=== PATIENT | male | born 1960 | race Caucasian/White ===

== ENCOUNTER 2017-01-30 00:41 | Inpatient (IN) | payer OTHER ==
[~2017-01-30] VITALS: Ht 177.8 cm; Wt 136.4 kg
[2017-01-30] VITALS (15 sets, daily range): BP systolic 132–173; BP diastolic 53–99
[~2017-01-30 00:41] MED LIST: AFRIN,GENASAL D15 ML BOTH NARES; AMLODIPINE BESYL5 MG PO; AMLODIPINE-BEN1 EAC3 PO; ANTACID420 MG PO; DECONGEST BOTH NARES; DYNAPEN500 MG PO; EXTRA STRENGTH500 M1 PO; FERROUS SULFAT325 MG PO; FIBER SELECT G1 EACH PO; FLONASE16 G1 BOTH NARES; KEFLEX500 MG PO; LEVOFLOXACIN500 MG PO; LISINOPRIL10 MG PO; LISINOPRIL20 MG PO; LISINOPRIL5 MG PO; LOTREL 5/201 CAPSULE PO; MAGNESIUM250 MG PO; NYQUIL D COLD295 ML PO; OMEPRAZOLE40 M1 PO; POTASSIUM CHLO10 MEQ PO; POTASSIUM GLUCO2 MEQ PO; POTASSIUM-9999 MG PO; PRILOSEC20 MG PO; PROTONIX40 MG PO; Percocet 5/325,Endoc PO; STOOL SOFTENER100 MG PO; TUMS500 MG PO; TYLENOL REGULA325 MG PO; Zestril,Prinivil PO
[2017-01-30 01:24] LABS: CHLORIDE 101 mEq/L (99-109); POTASSIUM 3.7 mEq/L (3.7-5.4); SODIUM 134 mEq/L (136-147)
[2017-01-30 01:26] LABS: GLUCOSE 115 mg/dL (70-99)
[2017-01-30 01:27] LABS: ANION GAP 14 MEQ/L (2-14)
[2017-01-30 01:30] LABS: GFR ESTIMATE (CALCULATED) > 59 mL/min/
[2017-01-30 01:31] LABS: UREA NITROGEN (BUN) 14 mg/dL (9-23)
[2017-01-30 01:44] LABS: HEMATOCRIT 21.2 % (38.0-50.0); MCH 18.8 PG (29.0-34.0); MCHC 27.8 G/DL (30.0-36.0); MCV 67.5 FL (86-99); MEAN PLAT.VOLUME 10.4 uM^3 (9.0-12.4); PLATELET COUNT 133 K/uL (156-360); RBC DIS.WIDTH-CV 18.5 % (11.8-14.6); RBC DIS.WIDTH-SD 44.6 % (39-53); RED BLOOD COUNT 3.14 M/uL (4.00-5.50); WHITE BLOOD COUNT 4.4 K/uL (4.1-10.2)
[2017-01-30 02:47] LABS: TOTAL BILIRUBIN 0.6 mg/dL (0.0-1.0)
[2017-01-30 02:48] LABS: ALKALINE PHOSPHATASE 39 IU/L (3-129)
[2017-01-30 02:51] LABS: DIRECT BILIRUBIN 0.2 mg/dL (0.0-0.3); INTER. NORMALIZED RATIO 1.2; PROTHROMBIN TIME 11.9 (9.2-11.2); PTT 23.6 (25-32)
[2017-01-30 02:52] LABS: LIPASE 44 U/L (1.0-51.0)
[2017-01-30] MEDS ORDERED: OMEPRAZOLE40 M1 PO (10:24)
[2017-01-30] MEDS ORDERED: ZESTRIL20 MG PO (10:24)
[2017-01-30] MEDS ORDERED: AFRIN,GENASAL D15 ML BOTH NARES (10:25)
[2017-01-30] MEDS ORDERED: POTASSIUM GLUCO2 MEQ PO (10:26)
[2017-01-30 20:57] LABS: HEMATOCRIT 26.4 % (38.0-50.0); MCV 73.1 FL (86-99)
[2017-01-31] VITALS: BP 151/81
[2017-01-31 03:47] VITALS: BP 158/74
[2017-01-31 08:11] LABS: HEMATOCRIT 26.5 % (38.0-50.0); MCV 74.4 FL (86-99)
[2017-01-31 08:13] VITALS: BP 162/80
== END 2017-01-31 12:45 | disposition home or self-care (01) | DRG 378 ==
LOC: EME 00:41 → EDOF 03:55 → 4SOUTH 03:55 → EDOF 06:50 → 4SOUTH 07:23
PROVIDERS: Physician Assistant Medical
PROC: 30233N1 Transfusion of Nonautologous Red Blood Cells into Peripheral Vein, Percutaneous Approach (ICD-10-PCS; principal; 2017-01-30)
DX: K92.2 Gastrointestinal hemorrhage, unspecified (principal); D62 Acute posthemorrhagic anemia; E66.01 Morbid (severe) obesity due to excess calories; I10 Essential (primary) hypertension; K21.9 Gastro-esophageal reflux disease without esophagitis; K57.90 Diverticulosis of intestine, part unspecified, without perforation or abscess without bleeding; Z68.41 Body mass index [BMI] 40.0-44.9, adult; F10.10 Alcohol abuse, uncomplicated; K26.9 Duodenal ulcer, unspecified as acute or chronic, without hemorrhage or perforation; M10.9 Gout, unspecified
CPT/HCPCS: 80048; 80076; 83690; 83735; 85014; 85018; 85027; 85610; 85730; 86900; 86901; 86920; 99281; 99285; C9113; J1940; J3411; J7030; P9016

== ENCOUNTER 2017-04-23 01:00 | Inpatient (IN) | payer OTHER ==
[~2017-04-23] VITALS: Ht 180.3 cm; Wt 122.0 kg
[2017-04-23] VITALS (19 sets, daily range): BP systolic 0–181; BP diastolic 0–136
[~2017-04-23 01:00] MED LIST changes: +ZESTRIL20 MG PO
[2017-04-23 01:40] LABS: CHLORIDE 103 mEq/L (99-109); POTASSIUM 4.2 mEq/L (3.7-5.4); SODIUM 136 mEq/L (136-147)
[2017-04-23 01:41] LABS: HEMATOCRIT 35.2 % (38.0-50.0); MCH 19.2 PG (29.0-34.0); MCV 71.1 FL (86-99); NRBC (%) 3.5 /100 WBC (0-0); PLATELET COUNT 75 K/uL (156-360); RBC DIS.WIDTH-CV 21.1 % (11.8-14.6); RBC DIS.WIDTH-SD 51.9 % (39-53); RED BLOOD COUNT 4.95 M/uL (4.00-5.50); WHITE BLOOD COUNT 6.7 K/uL (4.1-10.2)
[2017-04-23 01:42] LABS: GLUCOSE 116 mg/dL (70-99)
[2017-04-23 01:43] LABS: ANION GAP 17 MEQ/L (2-14)
[2017-04-23 01:44] LABS: TOTAL BILIRUBIN 1.7 mg/dL (0.0-1.0)
[2017-04-23 01:45] LABS: ALKALINE PHOSPHATASE 212 IU/L (3-129)
[2017-04-23 01:46] LABS: GFR ESTIMATE (CALCULATED) 48 mL/min/
[2017-04-23 01:47] LABS: UREA NITROGEN (BUN) 14 mg/dL (9-23)
[2017-04-23 01:49] LABS: CREATINE KINASE 320 IU/L (1-294); LIPASE 49 U/L (1.0-51.0); TROP-I INTERPRETATION NEGATIVE; TROPONIN-I 0.03 ng/mL (0.0-0.30)
[2017-04-23 02:33] LABS: ABS NEUTROPHIL COUNT 5.9; ANISOCYTOSIS 2+; ATYPICAL LYMPHOCYTE 0.9 %; BAND NEUTROPHILS 11.3 % (0-8.0); BASOPHILS 0.9 %; EOSINOPHIL ABS CT 0.1; EOSINOPHILS 1.7 % (0-5.0); INSTRUMENT ABS NEUTROPHIL CT 6.3 K/uL; LYMPHOCYTES 3.5 % (15.0-45.0); MACROCYTES 1+; MICROCYTOSIS 2+; NUCLEATED RBC'S 3.5; OVALOCYTES 2+; PLAT.SUFFICIENCY DECREASED; POIKILOCYTOSIS 1+; POLYCHROMASIA 1+; SEG.NEUTROPHILS 76.5 % (46.0-76.0)
[2017-04-23 07:04] LABS: INFLUENZA A VIRAL ANTIGEN NEGATIVE; INFLUENZA B VIRAL ANTIGEN NEGATIVE
[2017-04-23 07:17] LABS: METH RESISTANT S AUREUS PCR NEGATIVE (NEGATIVE)
[2017-04-23 07:28] LABS: PROBE CHECK PASS; SPECIMEN PROCESSING CONTROL PASS
[2017-04-23 07:48] LABS: ADD MIUA? YES; BILIRUBIN NEGATIVE; BLOOD NEGATIVE; COLOR AMBER ((YELLOW)); GLUCOSE (STRIP) NEGATIVE; KETONES 5; LEUKOCYTES NEGATIVE; NITRITE NEGATIVE; PROTEIN (STRIP) 30; SPECIFIC GRAVITY 1.028 (1.000-1.030); UROBILINOGEN 0.2 MG/DL (0.2-1.0)
[2017-04-23 07:51] LABS: BACTERIA NONE SEEN /HPF; EPITHELIAL CELLS RARE /HPF; MUCUS TRACE /LPF; RED BLOOD CELLS 0-5 /HPF (0-5); UCUL ADDED? NO; WHITE BLOOD CELLS 0-5 /HPF (0-5)
[2017-04-23 09:26] LABS: HEMATOCRIT 27.1 % (38.0-50.0); MCH 20.1 PG (29.0-34.0); MCHC 28.4 G/DL (30.0-36.0); MCV 70.8 FL (86-99); NRBC (%) 0.2 /100 WBC (0-0); RBC DIS.WIDTH-CV 20.8 % (11.8-14.6); RBC DIS.WIDTH-SD 53.2 % (39-53); RED BLOOD COUNT 3.83 M/uL (4.00-5.50); WHITE BLOOD COUNT 28.3 K/uL (4.1-10.2)
[2017-04-23 09:42] LABS: ALKALINE PHOSPHATASE 116 IU/L (3-129); ANION GAP 10 MEQ/L (2-14); CHLORIDE 107 MEQ/L (99-109); GFR ESTIMATE (CALCULATED) 52 mL/min/; GLUCOSE 115 mg/dL (70-99); MAGNESIUM 1.2 mg/dl (1.3-2.7); POTASSIUM 4.5 MEQ/L (3.7-5.4); SAMPLE HEMOLYSIS CHECK 0; SAMPLE ICTERIC CHECK 0; SAMPLE LIPEMIA CHECK 0; SODIUM 133 MEQ/L (136-147); TOTAL BILIRUBIN 1.8 MG/DL (0.0-1.0); UREA NITROGEN (BUN) 17 mg/dL (9-23)
[2017-04-23 09:48] LABS: PLAT.SUFFICIENCY DECREASED; PLATELET COUNT 67 K/uL (156-360)
[2017-04-23 09:54] LABS: TROP-I INTERPRETATION NEGATIVE; TROPONIN-I 0.04 ng/mL (0.0-0.30)
[2017-04-23 11:35] LABS: HBSG INDEX 0.22; HPCA INDEX 0.13
[2017-04-23 11:37] LABS: ANTI-HEPATITIS A VIRUS (IGM) Nonreactive; ANTI-HEPATITIS B CORE (IGM) Nonreactive; HAV INDEX 0.17; HBC IgM INDEX 0.09
[2017-04-23 16:39] LABS: AMYLASE 25 IU/L (1-118); GLOBULINS 2.5 G/DL (2.3-3.5); LIPASE 35 U/L (1.0-51.0)
[2017-04-23 16:40] LABS: TROP-I INTERPRETATION NEGATIVE; TROPONIN-I 0.06 ng/mL (0.0-0.30)
[2017-04-23 18:45] LABS: TROP-I INTERPRETATION NEGATIVE; TROPONIN-I 0.08 ng/mL (0.0-0.30)
[2017-04-24] VITALS (23 sets, daily range): BP systolic 105–176; BP diastolic 62–150
[2017-04-24 01:44] LABS: HEMATOCRIT 26.7 % (38.0-50.0); MCH 19.6 PG (29.0-34.0); MCHC 27.7 G/DL (30.0-36.0); MCV 70.8 FL (86-99); NRBC (%) 0.3 /100 WBC (0-0); RBC DIS.WIDTH-CV 21.4 % (11.8-14.6); RBC DIS.WIDTH-SD 53.6 % (39-53); RED BLOOD COUNT 3.77 M/uL (4.00-5.50); WHITE BLOOD COUNT 22.6 K/uL (4.1-10.2)
[2017-04-24 02:13] LABS: ANION GAP 10 MEQ/L (2-14); CHLORIDE 105 MEQ/L (99-109); GFR ESTIMATE (CALCULATED) 52 mL/min/; GLUCOSE 112 mg/dL (70-99); POTASSIUM 4.5 MEQ/L (3.7-5.4); SAMPLE HEMOLYSIS CHECK 0; SAMPLE ICTERIC CHECK 0; SAMPLE LIPEMIA CHECK 0; SODIUM 133 MEQ/L (136-147); TOTAL BILIRUBIN 1.6 MG/DL (0.0-1.0); UREA NITROGEN (BUN) 20 mg/dL (9-23)
[2017-04-24 02:15] LABS: ALKALINE PHOSPHATASE 58 IU/L (3-129)
[2017-04-24 02:31] LABS: IMM.PLATELET FRACTION 17.2 (1-7); PLAT.SUFFICIENCY DECREASED; PLATELET COUNT 50 K/uL (156-360)
[2017-04-24 08:27] LABS: HEMATOCRIT 26.8 % (38.0-50.0); MCH 20.3 PG (29.0-34.0); MCHC 28.4 G/DL (30.0-36.0); MCV 71.5 FL (86-99); NRBC (%) 0.3 /100 WBC (0-0); RBC DIS.WIDTH-CV 21.2 % (11.8-14.6); RBC DIS.WIDTH-SD 54.4 % (39-53); RED BLOOD COUNT 3.75 M/uL (4.00-5.50); WHITE BLOOD COUNT 23.6 K/uL (4.1-10.2)
[2017-04-24 08:37] LABS: ALKALINE PHOSPHATASE 58 IU/L (3-129); ANION GAP 11 MEQ/L (2-14); CHLORIDE 106 MEQ/L (99-109); GFR ESTIMATE (CALCULATED) 56 mL/min/; GLUCOSE 135 mg/dL (70-99); SAMPLE HEMOLYSIS CHECK 0; SAMPLE ICTERIC CHECK 0; SAMPLE LIPEMIA CHECK 0; SODIUM 134 MEQ/L (136-147); UREA NITROGEN (BUN) 22 mg/dL (9-23)
[2017-04-24 08:38] LABS: MAGNESIUM 1.7 mg/dl (1.3-2.7)
[2017-04-24 08:57] LABS: PLATELET COUNT 56 K/uL (156-360)
[2017-04-24 12:30] LABS: ALBUMIN 3.34 G/DL (3.6-4.9); ALBUMIN PERCENT 57.6 %; ALPHA-1 GLOBULIN 0.25 G/DL (0.15-0.40); ALPHA-1 PERCENT 4.3 %; ALPHA-2 GLOBULIN 0.53 G/DL (0.45-0.85); ALPHA-2 PERCENT 9.1 %; IFE GEL NO. 92-3
[2017-04-24 18:21] LABS: UR CREATININE CONCENTRATION 136.5 MG/DL
[2017-04-24 21:42] LABS: ALKALINE PHOSPHATASE 65 IU/L (3-129); ANION GAP 13 MEQ/L (2-14); CHLORIDE 104 MEQ/L (99-109); GFR ESTIMATE (CALCULATED) 48 mL/min/; GLUCOSE 118 mg/dL (70-99); LIPASE 124 U/L (1.0-51.0); POTASSIUM 4.8 MEQ/L (3.7-5.4); SAMPLE HEMOLYSIS CHECK 0; SAMPLE ICTERIC CHECK 0; SAMPLE LIPEMIA CHECK 0; SODIUM 134 MEQ/L (136-147); TOTAL BILIRUBIN 2.1 MG/DL (0.0-1.0); UREA NITROGEN (BUN) 30 mg/dL (9-23)
[2017-04-24 21:43] LABS: AMYLASE 40 IU/L (1-118); MAGNESIUM 2.9 mg/dl (1.3-2.7)
[2017-04-25] VITALS (30 sets, daily range): BP systolic 108–178; BP diastolic 56–112
[2017-04-25 04:54] LABS: HEMATOCRIT 24.2 % (38.0-50.0); MCH 19.3 PG (29.0-34.0); MCHC 27.7 G/DL (30.0-36.0); MCV 69.5 FL (86-99); NRBC (%) 0.5 /100 WBC (0-0); RBC DIS.WIDTH-CV 20.8 % (11.8-14.6); RED BLOOD COUNT 3.48 M/uL (4.00-5.50); WHITE BLOOD COUNT 18.4 K/uL (4.1-10.2)
[2017-04-25 05:08] LABS: CHLORIDE 109 mEq/L (99-109); POTASSIUM 4.8 mEq/L (3.7-5.4); SODIUM 134 mEq/L (136-147)
[2017-04-25 05:09] LABS: MAGNESIUM 2.4 mg/dL (1.3-2.7)
[2017-04-25 05:11] LABS: GLUCOSE 117 mg/dL (70-99)
[2017-04-25 05:12] LABS: ANION GAP 9 MEQ/L (2-14)
[2017-04-25 05:13] LABS: TOTAL BILIRUBIN 1.8 mg/dL (0.0-1.0)
[2017-04-25 05:15] LABS: GFR ESTIMATE (CALCULATED) 56 mL/min/
[2017-04-25 05:16] LABS: UREA NITROGEN (BUN) 33 mg/dL (9-23)
[2017-04-25 05:18] LABS: CREATINE KINASE 237 IU/L (1-294); TOTAL CK 237 IU/L (1-294)
[2017-04-25 05:26] LABS: CK-MB 7.5 ng/mL (0.0-4.9)
[2017-04-25 05:40] LABS: ALKALINE PHOSPHATASE 59 IU/L (3-129)
[2017-04-25 06:11] LABS: PLAT.SUFFICIENCY DECREASED; PLATELET COUNT 55 K/uL (156-360)
[2017-04-25 07:06] LABS: LIPASE 157 U/L (1.0-51.0)
[2017-04-25 08:06] LABS: BASE EXCESS -3.9 mEq/L (-3 to +3); BICARBONATE 19.7 mEq/L (22-26); CARBOXY HGB 2.5 % (0-5); METHEMOGLOBIN 1.1 % (0-1.5); PCO2 29 mm Hg (35-45); PO2 87 mm Hg (80-100); pH 7.44 (7.35-7.45)
[2017-04-25 08:07] LABS: COMMENTS - BLOOD GASES NAC+; DEVICE NC; O2 FLOW 4 L/MIN; SITE LR; TOTAL RESP RATE 26 resp/min
[2017-04-26] VITALS (22 sets, daily range): BP systolic 92–154; BP diastolic 52–96
[2017-04-26 01:50] LABS: BASE EXCESS -4.8 mEq/L (-3 to +3); BICARBONATE 20.5 mEq/L (22-26); CARBOXY HGB 2.5 % (0-5); METHEMOGLOBIN 1.3 % (0-1.5); PCO2 38 mm Hg (35-45); PO2 62 mm Hg (80-100); TOTAL RESP RATE 27 resp/min; pH 7.34 (7.35-7.45)
[2017-04-26 01:51] LABS: COMMENTS - BLOOD GASES C+; DEVICE NCH; O2 FLOW 8 L/MIN; SITE LR
[2017-04-26 04:00] LABS: BICARBONATE 22.3 mEq/L (22-26); CARBOXY HGB 2.3 % (0-5); METHEMOGLOBIN 1.4 % (0-1.5); PCO2 52 mm Hg (35-45); PEEP 10 CM/H20; PO2 82 mm Hg (80-100); TIDAL VOLUME 500 ML; pH 7.24 (7.35-7.45)
[2017-04-26 04:01] LABS: DEVICE VENT; FI02 100 %; MECHANICAL RATE 16 resp/min; MODE ACVC; SITE LR; TOTAL RESP RATE 16 resp/min
[2017-04-26 04:38] LABS: HEMATOCRIT 27.7 % (38.0-50.0); MCH 21.1 PG (29.0-34.0); MCHC 29.2 G/DL (30.0-36.0); MCV 72.1 FL (86-99); NRBC (%) 0.8 /100 WBC (0-0); RBC DIS.WIDTH-CV 22.2 % (11.8-14.6); RBC DIS.WIDTH-SD 57.5 % (39-53); RED BLOOD COUNT 3.84 M/uL (4.00-5.50); WHITE BLOOD COUNT 13.7 K/uL (4.1-10.2)
[2017-04-26 04:39] LABS: CHLORIDE 111 mEq/L (99-109); POTASSIUM 4.7 mEq/L (3.7-5.4); SODIUM 140 mEq/L (136-147)
[2017-04-26 04:41] LABS: GLUCOSE 144 mg/dL (70-99)
[2017-04-26 04:42] LABS: ANION GAP 10 MEQ/L (2-14)
[2017-04-26 04:43] LABS: TOTAL BILIRUBIN 1.9 mg/dL (0.0-1.0)
[2017-04-26 04:45] LABS: ALKALINE PHOSPHATASE 54 IU/L (3-129); BASOPHIL COUNT 0.1 K/uL (0-0.1); EOSINOPHIL COUNT 0.1 K/uL (0-0.3); GFR ESTIMATE (CALCULATED) > 59 mL/min/; IMMATURE GRANULOCYTE (%) 4.2 % (0.0-0.7); IMMATURE GRANULOCYTE COUNT 0.6 K/uL; LYMPHOCYTE COUNT 1.1 K/uL (1.0-2.8); MONOCYTE (%) 6.2 % (3-12); MONOCYTE COUNT 0.9 K/uL (0-0.8); NEUTROPHIL (%) 80.2 % (45-76); PLATELET COUNT 66 K/uL (156-360)
[2017-04-26 04:46] LABS: UREA NITROGEN (BUN) 29 mg/dL (9-23)
[2017-04-26 06:18] LABS: POINT-OF-CARE METER ID UU13113731
[2017-04-26 12:02] LABS: POINT-OF-CARE METER ID UU13113731
[2017-04-26 16:59] LABS: POINT-OF-CARE METER ID UU14174217
[2017-04-27] VITALS (24 sets, daily range): BP systolic 99–135; BP diastolic 55–66
[2017-04-27 00:19] LABS: POINT-OF-CARE METER ID UU14174217; POINT-OF-CARE USER ID LABHNS84
[2017-04-27 05:29] LABS: POINT-OF-CARE METER ID UU14174217; POINT-OF-CARE USER ID LABHNS84
[2017-04-27 06:10] LABS: ALKALINE PHOSPHATASE 42 IU/L (3-129); ANION GAP 7 MEQ/L (2-14); CHLORIDE 112 MEQ/L (99-109); GFR ESTIMATE (CALCULATED) > 59 mL/min/; MAGNESIUM 2.8 mg/dl (1.3-2.7); SAMPLE HEMOLYSIS CHECK 1; SAMPLE ICTERIC CHECK 0; SAMPLE LIPEMIA CHECK 0; SODIUM 141 MEQ/L (136-147); UREA NITROGEN (BUN) 25 mg/dL (9-23)
[2017-04-27 06:12] LABS: GLUCOSE 104 mg/dL (70-99); TOTAL BILIRUBIN 1.4 MG/DL (0.0-1.0)
[2017-04-27 06:35] LABS: HEMATOCRIT 27.3 % (38.0-50.0); MCH 21.5 PG (29.0-34.0); MCHC 28.9 G/DL (30.0-36.0); MCV 74.4 FL (86-99); NRBC (%) 1.5 /100 WBC (0-0); PLATELET COUNT 85 K/uL (156-360); RBC DIS.WIDTH-CV 22.4 % (11.8-14.6); RBC DIS.WIDTH-SD 59.6 % (39-53); RED BLOOD COUNT 3.67 M/uL (4.00-5.50); WHITE BLOOD COUNT 12.4 K/uL (4.1-10.2)
[2017-04-27 10:55] LABS: BASE EXCESS -2.5 mEq/L (-3 to +3); BICARBONATE 23.2 mEq/L (22-26); METHEMOGLOBIN 1.3 % (0-1.5); PO2 84 mm Hg (80-100)
[2017-04-27 10:56] LABS: COMMENTS - BLOOD GASES NAC+; PCO2 43 mm Hg (35-45); SITE LR; pH 7.34 (7.35-7.45)
[2017-04-27 10:57] LABS: CONTINUOUS POS AIRWAY PRESSURE 5 cm H2O; DEVICE VENT; FI02 40 %; MODE SPONT; PRES. SUPPORT 10 CM/H2O; TOTAL RESP RATE 11 resp/min
[2017-04-27 12:10] LABS: POINT-OF-CARE METER ID UU14174217
[2017-04-28] VITALS (24 sets, daily range): BP systolic 102–149; BP diastolic 62–78
[2017-04-28 05:18] LABS: C DIFF TOXIN NEGATIVE (NEGATIVE); PROBE CHECK PASS; SPECIMEN PROCESSING CONTROL PASS
[2017-04-28 06:10] LABS: HEMATOCRIT 27.4 % (38.0-50.0); MCH 21.6 PG (29.0-34.0); MCHC 28.8 G/DL (30.0-36.0); MCV 75.1 FL (86-99); NRBC (%) 1.2 /100 WBC (0-0); RBC DIS.WIDTH-CV 23.7 % (11.8-14.6); RBC DIS.WIDTH-SD 61.2 % (39-53); RED BLOOD COUNT 3.65 M/uL (4.00-5.50); WHITE BLOOD COUNT 13.5 K/uL (4.1-10.2)
[2017-04-28 06:18] LABS: PLAT.SUFFICIENCY DECREASED
[2017-04-28 06:19] LABS: PLATELET COUNT 125 K/uL (156-360)
[2017-04-28 09:47] LABS: ALKALINE PHOSPHATASE 42 IU/L (3-129); ANION GAP 9 MEQ/L (2-14); CHLORIDE 112 MEQ/L (99-109); GFR ESTIMATE (CALCULATED) > 59 mL/min/; GLUCOSE 97 mg/dL (70-99); MAGNESIUM 2.8 mg/dl (1.3-2.7); POTASSIUM 4.7 MEQ/L (3.7-5.4); SAMPLE HEMOLYSIS CHECK 0; SAMPLE ICTERIC CHECK 0; SAMPLE LIPEMIA CHECK 0; SODIUM 142 MEQ/L (136-147); UREA NITROGEN (BUN) 24 mg/dL (9-23)
[2017-04-29] VITALS (24 sets, daily range): BP systolic 110–204; BP diastolic 59–115
[2017-04-29 06:26] LABS: ALKALINE PHOSPHATASE 40 IU/L (3-129); ANION GAP 8 MEQ/L (2-14); CHLORIDE 110 MEQ/L (99-109); GFR ESTIMATE (CALCULATED) > 59 mL/min/; GLUCOSE 192 mg/dL (70-99); MAGNESIUM 2.7 mg/dl (1.3-2.7); POTASSIUM 5.1 MEQ/L (3.7-5.4); SAMPLE HEMOLYSIS CHECK 0; SAMPLE ICTERIC CHECK 0; SAMPLE LIPEMIA CHECK 0; SODIUM 144 MEQ/L (136-147); TOTAL BILIRUBIN 0.8 MG/DL (0.0-1.0); UREA NITROGEN (BUN) 31 mg/dL (9-23)
[2017-04-29 06:51] LABS: HEMATOCRIT 28.9 % (38.0-50.0); MCHC 27.7 G/DL (30.0-36.0); MCV 75.9 FL (86-99); NRBC (%) 0.4 /100 WBC (0-0); PLATELET COUNT 161 K/uL (156-360); RBC DIS.WIDTH-CV 24.1 % (11.8-14.6); RBC DIS.WIDTH-SD 62.7 % (39-53); RED BLOOD COUNT 3.81 M/uL (4.00-5.50); WHITE BLOOD COUNT 16.4 K/uL (4.1-10.2)
[2017-04-30] VITALS (24 sets, daily range): BP systolic 149–212; BP diastolic 72–119
[2017-04-30 07:21] LABS: ANION GAP 11 MEQ/L (2-14); CHLORIDE 109 MEQ/L (99-109); GFR ESTIMATE (CALCULATED) > 59 mL/min/; GLUCOSE 142 mg/dL (70-99); MAGNESIUM 2.4 mg/dl (1.3-2.7); POTASSIUM 4.6 MEQ/L (3.7-5.4); SAMPLE HEMOLYSIS CHECK 0; SAMPLE ICTERIC CHECK 0; SAMPLE LIPEMIA CHECK 0; SODIUM 145 MEQ/L (136-147); UREA NITROGEN (BUN) 33 mg/dL (9-23)
[2017-04-30 07:22] LABS: HEMATOCRIT 31.5 % (38.0-50.0); MCH 20.9 PG (29.0-34.0); MCHC 28.3 G/DL (30.0-36.0); MCV 74.1 FL (86-99); MEAN PLAT.VOLUME 10.9 uM^3 (9.0-12.4); NRBC (%) 0.2 /100 WBC (0-0); PLATELET COUNT 202 K/uL (156-360); RBC DIS.WIDTH-CV 24.1 % (11.8-14.6); RBC DIS.WIDTH-SD 62.2 % (39-53); RED BLOOD COUNT 4.25 M/uL (4.00-5.50); WHITE BLOOD COUNT 12.4 K/uL (4.1-10.2)
[2017-04-30 08:24] LABS: ADD MIUA? NO; BILIRUBIN NEGATIVE; BLOOD NEGATIVE; COLOR YELLOW ((YELLOW)); GLUCOSE (STRIP) 50; KETONES NEGATIVE; LEUKOCYTES NEGATIVE; NITRITE NEGATIVE; PROTEIN (STRIP) NEGATIVE; SPECIFIC GRAVITY 1.016 (1.000-1.030); UCUL ADDED? NO
[2017-05-01] VITALS (21 sets, daily range): BP systolic 118–180; BP diastolic 50–94
[2017-05-01 05:18] LABS: CHLORIDE 105 mEq/L (99-109); POTASSIUM 4.4 mEq/L (3.7-5.4)
[2017-05-01 05:19] LABS: MAGNESIUM 2.1 mg/dL (1.3-2.7); SODIUM 137 mEq/L (136-147)
[2017-05-01 05:20] LABS: GLUCOSE 184 mg/dL (70-99)
[2017-05-01 05:21] LABS: ANION GAP 7 MEQ/L (2-14)
[2017-05-01 05:24] LABS: GFR ESTIMATE (CALCULATED) > 59 mL/min/
[2017-05-01 05:25] LABS: UREA NITROGEN (BUN) 28 mg/dL (9-23)
[2017-05-01 05:27] LABS: LIPASE 68 U/L (1.0-51.0)
[2017-05-01 05:33] LABS: HEMATOCRIT 30.6 % (38.0-50.0); MCH 21.2 PG (29.0-34.0); MCHC 28.4 G/DL (30.0-36.0); MCV 74.6 FL (86-99); MEAN PLAT.VOLUME 10.6 uM^3 (9.0-12.4); NRBC (%) 0.2 /100 WBC (0-0); PLATELET COUNT 214 K/uL (156-360); RBC DIS.WIDTH-CV 23.5 % (11.8-14.6); RBC DIS.WIDTH-SD 61.6 % (39-53); WHITE BLOOD COUNT 8.9 K/uL (4.1-10.2)
[2017-05-01 14:21] LABS: BASE EXCESS 1.2 mEq/L (-3 to +3); CARBOXY HGB 2.1 % (0-5); COMMENTS - BLOOD GASES NAC+; CONTINUOUS POS AIRWAY PRESSURE 5 cm H2O; DEVICE VENT; FI02 30 %; METHEMOGLOBIN 1.9 % (0-1.5); MODE TUBE COMPENSATION; PCO2 41 mm Hg (35-45); PO2 105 mm Hg (80-100); SITE LR; TOTAL RESP RATE 10 resp/min; pH 7.41 (7.35-7.45)
[2017-05-02] VITALS (7 sets, daily range): BP systolic 132–172; BP diastolic 71–90
[2017-05-02 06:16] LABS: ANION GAP 10 MEQ/L (2-14); CHLORIDE 104 MEQ/L (99-109); GFR ESTIMATE (CALCULATED) > 59 mL/min/; MAGNESIUM 2.2 mg/dl (1.3-2.7); POTASSIUM 4.3 MEQ/L (3.7-5.4); SAMPLE HEMOLYSIS CHECK 0; SAMPLE ICTERIC CHECK 0; SAMPLE LIPEMIA CHECK 0; SODIUM 139 MEQ/L (136-147); UREA NITROGEN (BUN) 24 mg/dL (9-23)
[2017-05-02 06:20] LABS: GLUCOSE 116 mg/dL (70-99)
[2017-05-02 06:31] LABS: MCH 20.8 PG (29.0-34.0); MCHC 27.8 G/DL (30.0-36.0); PLATELET COUNT 257 K/uL (156-360); RBC DIS.WIDTH-CV 24.2 % (11.8-14.6); RBC DIS.WIDTH-SD 62.7 % (39-53); WHITE BLOOD COUNT 11.2 K/uL (4.1-10.2)
[2017-05-03 03:18] VITALS: BP 151/72
[2017-05-03 07:07] LABS: MCH 21.2 PG (29.0-34.0); MCHC 28.1 G/DL (30.0-36.0); MCV 75.5 FL (86-99); MEAN PLAT.VOLUME 10.7 uM^3 (9.0-12.4); RBC DIS.WIDTH-CV 24.5 % (11.8-14.6); RBC DIS.WIDTH-SD 64.6 % (39-53); RED BLOOD COUNT 4.77 M/uL (4.00-5.50)
[2017-05-03 07:11] LABS: ANION GAP 10 MEQ/L (2-14); CHLORIDE 107 MEQ/L (99-109); GFR ESTIMATE (CALCULATED) > 59 mL/min/; GLUCOSE 101 mg/dL (70-99); POTASSIUM 4.2 MEQ/L (3.7-5.4); SAMPLE HEMOLYSIS CHECK 0; SAMPLE ICTERIC CHECK 0; SAMPLE LIPEMIA CHECK 0; SODIUM 140 MEQ/L (136-147); UREA NITROGEN (BUN) 23 mg/dL (9-23)
[2017-05-03 07:25] LABS: PLATELET COUNT 362 K/uL (156-360)
[2017-05-03 07:50] VITALS: BP 141/73
[2017-05-03 12:08] VITALS: BP 141/86
[2017-05-03 16:35] VITALS: BP 138/76
[2017-05-03 19:50] VITALS: BP 162/83
[2017-05-03 23:25] VITALS: BP 142/72
[2017-05-04 07:15] VITALS: BP 153/72
[2017-05-04 07:17] LABS: ANION GAP 8 MEQ/L (2-14); CHLORIDE 109 MEQ/L (99-109); GFR ESTIMATE (CALCULATED) > 59 mL/min/; GLUCOSE 89 mg/dL (70-99); LIPASE 321 U/L (1.0-51.0); MAGNESIUM 1.9 mg/dl (1.3-2.7); POTASSIUM 3.9 MEQ/L (3.7-5.4); SAMPLE HEMOLYSIS CHECK 0; SAMPLE ICTERIC CHECK 0; SAMPLE LIPEMIA CHECK 0; SODIUM 140 MEQ/L (136-147); UREA NITROGEN (BUN) 19 mg/dL (9-23)
[2017-05-04 07:18] LABS: AMYLASE 122 IU/L (1-118)
[2017-05-04 07:36] LABS: HEMATOCRIT 35.9 % (38.0-50.0); MCH 21.2 PG (29.0-34.0); MCHC 27.9 G/DL (30.0-36.0); MCV 76.2 FL (86-99); PLATELET COUNT 256 K/uL (156-360); RBC DIS.WIDTH-CV 24.5 % (11.8-14.6); RBC DIS.WIDTH-SD 65.2 % (39-53); RED BLOOD COUNT 4.71 M/uL (4.00-5.50); WHITE BLOOD COUNT 6.1 K/uL (4.1-10.2)
[2017-05-04 11:37] VITALS: BP 145/74
[2017-05-04 16:14] VITALS: BP 137/73
[2017-05-04 19:44] VITALS: BP 137/76
[2017-05-05] VITALS (7 sets, daily range): BP systolic 123–188; BP diastolic 62–89
[2017-05-05 06:14] LABS: ANION GAP 10 MEQ/L (2-14); CHLORIDE 110 MEQ/L (99-109); GFR ESTIMATE (CALCULATED) > 59 mL/min/; GLUCOSE 86 mg/dL (70-99); SAMPLE HEMOLYSIS CHECK 0; SAMPLE ICTERIC CHECK 0; SAMPLE LIPEMIA CHECK 0; SODIUM 140 MEQ/L (136-147); UREA NITROGEN (BUN) 17 mg/dL (9-23)
[2017-05-05 06:24] LABS: HEMATOCRIT 33.7 % (38.0-50.0); MCH 21.4 PG (29.0-34.0); MCHC 27.9 G/DL (30.0-36.0); MCV 76.6 FL (86-99); MEAN PLAT.VOLUME 11.3 uM^3 (9.0-12.4); PLATELET COUNT 278 K/uL (156-360); RBC DIS.WIDTH-CV 24.2 % (11.8-14.6); RBC DIS.WIDTH-SD 65.5 % (39-53); WHITE BLOOD COUNT 5.9 K/uL (4.1-10.2)
[2017-05-06 04:11] VITALS: BP 125/65
[2017-05-06 05:13] LABS: HEMATOCRIT 35.3 % (38.0-50.0); MCH 21.4 PG (29.0-34.0); MCV 76.2 FL (86-99); MEAN PLAT.VOLUME 11.4 uM^3 (9.0-12.4); PLATELET COUNT 330 K/uL (156-360); RBC DIS.WIDTH-CV 24.7 % (11.8-14.6); RBC DIS.WIDTH-SD 65.5 % (39-53); RED BLOOD COUNT 4.63 M/uL (4.00-5.50); WHITE BLOOD COUNT 7.3 K/uL (4.1-10.2)
[2017-05-06 05:38] LABS: ALKALINE PHOSPHATASE 27 IU/L (3-129); ANION GAP 8 MEQ/L (2-14); CHLORIDE 108 MEQ/L (99-109); DIRECT BILIRUBIN 0.2 mg/dL (0.0-0.3); GFR ESTIMATE (CALCULATED) > 59 mL/min/; GLUCOSE 84 mg/dL (70-99); POTASSIUM 4.2 MEQ/L (3.7-5.4); SAMPLE HEMOLYSIS CHECK 0; SAMPLE ICTERIC CHECK 0; SAMPLE LIPEMIA CHECK 0; SODIUM 138 MEQ/L (136-147); TOTAL BILIRUBIN 0.8 MG/DL (0.0-1.0); UREA NITROGEN (BUN) 16 mg/dL (9-23)
[2017-05-06 08:35] VITALS: BP 125/63
[2017-05-06 16:21] VITALS: BP 131/65
[2017-05-06 19:58] VITALS: BP 144/76
[2017-05-07 00:01] VITALS: BP 100/57
[2017-05-07 04:08] VITALS: BP 130/53
[2017-05-07 08:00] VITALS: BP 130/77
[2017-05-07] MEDS ORDERED: Thiamine,Vitamin B1 PO (08:01)
[2017-05-07] MEDS ORDERED: LOPRESSOR25 MG PO (08:01)
[2017-05-07] MEDS ORDERED: PREDNISONE5 MG PO (08:01)
[2017-05-07] MEDS ORDERED: FOLIC ACID1 MG PO (08:01)
== END 2017-05-07 09:59 | disposition home health service (06) | DRG 870 ==
LOC: EME → EDBD 01:00 → 4WEST 04:02 → EDOF 04:02 → 4WEST 05:22 → 4EAST 05-02 19:33 → ENRESERV 05-06 07:54 → CANRESERV 05-06 16:10 → 4EAST 05-07 09:59
PROVIDERS: Emergency Medicine; Internal Medicine; Internal Medicine Nephrology; Internal Medicine Pulmonary Disease; Obstetrics & Gynecology; Surgery Trauma Surgery
DX: A41.9 Sepsis, unspecified organism (principal); J96.91 Respiratory failure, unspecified with hypoxia; K85.90 Acute pancreatitis without necrosis or infection, unspecified; E66.01 Morbid (severe) obesity due to excess calories; K21.9 Gastro-esophageal reflux disease without esophagitis; I10 Essential (primary) hypertension; M10.9 Gout, unspecified; N17.9 Acute kidney failure, unspecified; E87.2 Acidosis; D64.9 Anemia, unspecified; D69.6 Thrombocytopenia, unspecified; I48.91 Unspecified atrial fibrillation; K52.9 Noninfective gastroenteritis and colitis, unspecified; F10.239 Alcohol dependence with withdrawal, unspecified; F10.230 Alcohol dependence with withdrawal, uncomplicated; E86.1 Hypovolemia; I48.92 Unspecified atrial flutter; K72.90 Hepatic failure, unspecified without coma; Z68.41 Body mass index [BMI] 40.0-44.9, adult; Z87.891 Personal history of nicotine dependence
CPT/HCPCS: 36600; 70450; 71010; 72125; 74170; 74176; 76705; 80048; 80048 91; 80053; 80069; 80074; 80076; 81003; 82140; 82150; 82550; 82553; 82570; 82803; 82948; 83605; 83690; 83735; 84100; 84156; 84165; 84484; 85025; 85027; 86334; 86900; 86901; 86920; 87040; 87070; 87076; 87077; 87106; 87186; 87205; 87493; 87502; 87641; 87801; 92523 GN; 93005; 93306; 94002; 94003; 94640; 94640 76; 94799; 99202; 99281; 99285; G0480; J0360; J0696; J1644; J1815; J1940; J2060; J2250; J2270; J2543; J2704; J2920; J2930; J3010; J3360; J3370; J3411; J3475; J7040; J7050; J7120; J7512; P9016; S0028

== ENCOUNTER 2017-05-28 12:55 | Emergency (ER) | payer OTHER ==
[~2017-05-28] VITALS: Ht 177.8 cm; Wt 127.3 kg
[~2017-05-28 12:55] MED LIST changes: +FOLIC ACID1 MG PO; +LOPRESSOR25 MG PO; +PREDNISONE5 MG PO; +Thiamine,Vitamin B1 PO
[2017-05-28 14:08] LABS: HEMATOCRIT 36.9 % (38.0-50.0); MCH 22.6 PG (29.0-34.0); MCHC 29.5 G/DL (30.0-36.0); MCV 76.6 FL (86-99); RBC DIS.WIDTH-CV 23.6 % (11.8-14.6); RBC DIS.WIDTH-SD 64.8 % (39-53); RED BLOOD COUNT 4.82 M/uL (4.00-5.50); WHITE BLOOD COUNT 5.4 K/uL (4.1-10.2)
[2017-05-28 14:11] LABS: CHLORIDE 107 mEq/L (99-109); POTASSIUM 4.6 mEq/L (3.7-5.4); SODIUM 139 mEq/L (136-147)
[2017-05-28 14:13] LABS: GLUCOSE 118 mg/dL (70-99)
[2017-05-28 14:14] LABS: ANION GAP 10 MEQ/L (2-14)
[2017-05-28 14:15] LABS: TOTAL BILIRUBIN 0.5 mg/dL (0.0-1.0)
[2017-05-28 14:16] LABS: ALKALINE PHOSPHATASE 39 IU/L (3-129)
[2017-05-28 14:17] LABS: GFR ESTIMATE (CALCULATED) > 59 mL/min/
[2017-05-28 14:18] LABS: UREA NITROGEN (BUN) 14 mg/dL (9-23)
[2017-05-28 14:20] LABS: CREATINE KINASE 86 IU/L (1-294); TOTAL CK 86 IU/L (1-294)
[2017-05-28 14:22] LABS: TROP-I INTERPRETATION NEGATIVE; TROPONIN-I < 0.01 ng/mL (0.0-0.30)
[2017-05-28 14:25] LABS: CK-MB 6.4 ng/mL (0.0-4.9)
[2017-05-28 14:55] LABS: MEAN PLAT.VOLUME 10.1 uM^3 (9.0-12.4); PLAT.SUFFICIENCY DECREASED
[2017-05-28 14:59] LABS: PLATELET COUNT 132 K/uL (156-360)
[2017-05-28 17:39] LABS: ADD MIUA? YES; BILIRUBIN NEGATIVE; BLOOD NEGATIVE; COLOR YELLOW ((YELLOW)); GLUCOSE (STRIP) NEGATIVE; KETONES NEGATIVE; LEUKOCYTES NEGATIVE; NITRITE NEGATIVE; PROTEIN (STRIP) NEGATIVE; SPECIFIC GRAVITY 1.017 (1.000-1.030); UROBILINOGEN 0.2 MG/DL (0.2-1.0)
[2017-05-28 17:44] LABS: BACTERIA NONE SEEN /HPF; EPITHELIAL CELLS NONE SEEN /HPF; MUCUS TRACE /LPF; RED BLOOD CELLS 0-5 /HPF (0-5); UCUL ADDED? NO; WHITE BLOOD CELLS 0-5 /HPF (0-5)
[2017-05-28 19:20] VITALS: BP 137/74
== END 2017-05-28 19:23 | disposition home or self-care (01) ==
LOC: EME 12:55
PROVIDERS: Emergency Medicine
DX: R55 Syncope and collapse (principal); E86.0 Dehydration; I10 Essential (primary) hypertension; K21.9 Gastro-esophageal reflux disease without esophagitis; Z87.891 Personal history of nicotine dependence
CPT/HCPCS: 80053; 81003; 82550; 82553; 83605; 84484; 85027; 87040; 93005; 99281; 99285; J7030

== ENCOUNTER 2017-07-15 22:37 | Emergency (ER) | payer OTHER ==
[~2017-07-15] VITALS: Ht 177.8 cm; Wt 132.0 kg
[2017-07-15 22:47] VITALS: BP 129/84
[2017-07-15 23:03] LABS: HEMATOCRIT 34.2 % (38.0-50.0); MCH 22.1 PG (29.0-34.0); MCHC 29.5 G/DL (30.0-36.0); PLATELET COUNT 143 K/uL (156-360); RBC DIS.WIDTH-CV 18.6 % (11.8-14.6); RBC DIS.WIDTH-SD 51.2 % (39-53); RED BLOOD COUNT 4.56 M/uL (4.00-5.50)
[2017-07-15 23:15] LABS: CHLORIDE 99 mEq/L (99-109); POTASSIUM 3.7 mEq/L (3.7-5.4); SODIUM 130 mEq/L (136-147)
[2017-07-15 23:17] LABS: GLUCOSE 122 mg/dL (70-99)
[2017-07-15 23:18] LABS: ANION GAP 9 MEQ/L (2-14)
[2017-07-15 23:21] LABS: GFR ESTIMATE (CALCULATED) 56 mL/min/; UREA NITROGEN (BUN) 13 mg/dL (9-23)
[2017-07-16 00:25] LABS: ADD MIUA? NO; BILIRUBIN NEGATIVE; BLOOD NEGATIVE; COLOR STRAW ((YELLOW)); GLUCOSE (STRIP) NEGATIVE; KETONES NEGATIVE; LEUKOCYTES NEGATIVE; NITRITE NEGATIVE; PROTEIN (STRIP) NEGATIVE; SPECIFIC GRAVITY 1.003 (1.000-1.030); UCUL ADDED? NO; UROBILINOGEN 0.2 MG/DL (0.2-1.0)
== END 2017-07-16 01:10 | disposition left against medical advice (07) ==
LOC: EME 22:37
DX: R09.81 Nasal congestion (principal); R05 Cough; R10.84 Generalized abdominal pain; Z53.21 Procedure and treatment not carried out due to patient leaving prior to being seen by health care provider
CPT/HCPCS: 71020; 80048; 81003; 85027

== ENCOUNTER 2017-07-25 14:40 | Emergency (ER) | payer OTHER ==
[~2017-07-25] VITALS: Ht 177.8 cm; Wt 129.0 kg
[2017-07-25 16:54] LABS: MCH 22.5 PG (29.0-34.0); MCHC 29.7 G/DL (30.0-36.0); MCV 75.8 FL (86-99); MEAN PLAT.VOLUME 10.5 uM^3 (9.0-12.4); PLATELET COUNT 110 K/uL (156-360); RBC DIS.WIDTH-CV 17.2 % (11.8-14.6); RBC DIS.WIDTH-SD 47.2 % (39-53); RED BLOOD COUNT 4.62 M/uL (4.00-5.50); WHITE BLOOD COUNT 3.6 K/uL (4.1-10.2)
[2017-07-25 17:04] LABS: CHLORIDE 108 mEq/L (99-109); SODIUM 140 mEq/L (136-147)
[2017-07-25 17:05] LABS: GLUCOSE 138 mg/dL (70-99)
[2017-07-25 17:07] LABS: ANION GAP 10 MEQ/L (2-14)
[2017-07-25 17:09] LABS: GFR ESTIMATE (CALCULATED) > 59 mL/min/
[2017-07-25 17:10] LABS: UREA NITROGEN (BUN) 18 mg/dL (9-23)
[2017-07-25 18:13] VITALS: BP 128/73
== END 2017-07-25 18:20 | disposition home or self-care (01) ==
LOC: EME 14:40
PROVIDERS: Emergency Medicine
DX: J33.9 Nasal polyp, unspecified (principal); R05 Cough; R06.02 Shortness of breath; K21.9 Gastro-esophageal reflux disease without esophagitis; I10 Essential (primary) hypertension; F41.9 Anxiety disorder, unspecified; Z87.891 Personal history of nicotine dependence
CPT/HCPCS: 71020; 80048; 85027; 85379; 93005; 99281; 99284

== ENCOUNTER → 2017-09-11 | Outpatient (CLI) | payer OTHER ==
[~2017-09-11] MED LIST changes: +COLACE100 MG PO; +GLUCOSAMINE1000 MG PO; +LIVER COMPLEX1 EACH PO; +MAGNESIUM100 MG PO; +ONCE DAILY1 EACH PO
[2017-09-11 09:18] LABS: HEMATOCRIT 35.1 % (38.0-50.0); MCH 22.1 PG (29.0-34.0); MCHC 29.1 G/DL (30.0-36.0); MCV 76.1 FL (86-99); MEAN PLAT.VOLUME 11.6 uM^3 (9.0-12.4); PLATELET COUNT 143 K/uL (156-360); RBC DIS.WIDTH-CV 17.4 % (11.8-14.6); RBC DIS.WIDTH-SD 47.8 % (39-53); RED BLOOD COUNT 4.61 M/uL (4.00-5.50)
[2017-09-11 09:24] LABS: INTER. NORMALIZED RATIO 1.1; PROTHROMBIN TIME 12.2 SEC (10.2-12.9)
[2017-09-11 09:27] LABS: PTT 28.1 SEC (25-37)
== END | disposition home or self-care (01) ==
LOC: OPR 08:33 → EDSTATUS 09:00 → OPR 09:00
PROVIDERS: Internal Medicine Hematology & Oncology
DX: C7A.090 Malignant carcinoid tumor of the bronchus and lung (principal); I10 Essential (primary) hypertension; K21.9 Gastro-esophageal reflux disease without esophagitis; D50.0 Iron deficiency anemia secondary to blood loss (chronic); G47.33 Obstructive sleep apnea (adult) (pediatric); D69.6 Thrombocytopenia, unspecified; Z87.891 Personal history of nicotine dependence
CPT/HCPCS: 71010; 77012; 85027; 85610; 85730; 88305; 88341 TC; 88342 TC; J2405; J3010

== ENCOUNTER 2017-12-01 00:39 | Observation (INO) | payer OTHER ==
[~2017-12-01] VITALS: Ht 177.8 cm; Wt 144.9 kg
[2017-12-01 01:34] LABS: HEMATOCRIT 32.9 % (38.0-50.0); HEMOGLOBIN 9.5 G/DL (12.5-16.6); MCH 21.3 PG (29.0-34.0); MCHC 28.9 G/DL (30.0-36.0); MCV 73.9 FL (86-99); PLATELET COUNT 133 K/uL (156-360); RBC DIS.WIDTH-CV 18.2 % (11.8-14.6); RBC DIS.WIDTH-SD 47.8 % (39-53); RED BLOOD COUNT 4.45 M/uL (4.00-5.50); WHITE BLOOD COUNT 7.2 K/uL (4.1-10.2)
[2017-12-01 01:38] LABS: INTER. NORMALIZED RATIO 1.1
[2017-12-01 01:40] LABS: CHLORIDE 106 MEQ/L (99-109); POTASSIUM 3.6 MEQ/L (3.7-5.4); SODIUM 136 MEQ/L (136-147)
[2017-12-01 01:41] LABS: PTT 20.2 SEC (25-37)
[2017-12-01 01:45] LABS: GFR ESTIMATE (CALCULATED) > 59 mL/min/ (58.99-99999); GLUCOSE 132 mg/dL (70-99); UREA NITROGEN (BUN) 15 mg/dL (9-23)
[2017-12-01 03:01] LABS: ALBUMIN 4.5 G/DL (3.2-4.8); ALKALINE PHOSPHATASE 39 IU/L (3-129); ALT (GPT) 48 IU/L (3-49); AST (GOT) 35 IU/L (2-34); DIRECT BILIRUBIN 0.1 mg/dL (0.0-0.3); TOTAL BILIRUBIN 0.5 MG/DL (0.0-1.0); TOTAL PROTEIN 6.8 G/DL (6.4-8.3)
[2017-12-01 03:28] LABS: MAGNESIUM 1.9 mg/dl (1.3-2.7)
[2017-12-01 03:51] VITALS: BP 164/77
[2017-12-01 07:57] VITALS: BP 113/59
[2017-12-01 08:02] LABS: HEMATOCRIT 28.8 % (38.0-50.0); HEMOGLOBIN 8.3 G/DL (12.5-16.6); MCV 74.8 FL (86-99)
[2017-12-01 08:55] VITALS: BP 175/82
[2017-12-01 12:37] VITALS: BP 140/76
[2017-12-01 15:58] VITALS: BP 142/88
[2017-12-01 16:18] LABS: HEMATOCRIT 29.6 % (38.0-50.0); HEMOGLOBIN 8.3 G/DL (12.5-16.6); MCV 74.7 FL (86-99)
[2017-12-01] MEDS ORDERED: POTASSIUM-9999 MG PO (17:23)
[2017-12-01 18:52] VITALS: BP 172/79
[2017-12-02 00:12] VITALS: BP 169/84
[2017-12-02 00:32] LABS: HEMATOCRIT 32.4 % (38.0-50.0); HEMOGLOBIN 9.3 G/DL (12.5-16.6); MCV 73.8 FL (86-99)
[2017-12-02 05:00] VITALS: BP 153/81
[2017-12-02 07:25] LABS: HEMATOCRIT 30.9 % (38.0-50.0); HEMOGLOBIN 8.7 G/DL (12.5-16.6); MCHC 28.2 G/DL (30.0-36.0); MCV 74.6 FL (86-99); RBC DIS.WIDTH-CV 18.6 % (11.8-14.6); RBC DIS.WIDTH-SD 49.4 % (39-53); RED BLOOD COUNT 4.14 M/uL (4.00-5.50); WHITE BLOOD COUNT 4.5 K/uL (4.1-10.2)
[2017-12-02 08:00] VITALS: BP 146/80
[2017-12-02 08:57] LABS: PLATELET COUNT 112 K/uL (156-360)
[2017-12-02 11:36] VITALS: BP 149/71
== END 2017-12-02 12:12 | disposition home or self-care (01) ==
LOC: EME 00:39 → EDOF 02:30 → 5WEST 02:30 → ENRESERV 02:35 → 5WEST 03:33
PROVIDERS: Emergency Medicine; Internal Medicine Gastroenterology; Physician Assistant Medical
PROC: 0DJ08ZZ Inspection of Upper Intestinal Tract, Via Natural or Artificial Opening Endoscopic (ICD-10-PCS; principal; 2017-12-01)
DX: K92.2 Gastrointestinal hemorrhage, unspecified (principal); Z87.19 Personal history of other diseases of the digestive system; D64.9 Anemia, unspecified; D3A.090 Benign carcinoid tumor of the bronchus and lung; E66.01 Morbid (severe) obesity due to excess calories; Z68.42 Body mass index [BMI] 45.0-49.9, adult; I10 Essential (primary) hypertension; Z79.1 Long term (current) use of non-steroidal anti-inflammatories (NSAID); K21.9 Gastro-esophageal reflux disease without esophagitis; M10.9 Gout, unspecified; Z86.19 Personal history of other infectious and parasitic diseases; Z72.89 Other problems related to lifestyle; R73.9 Hyperglycemia, unspecified; E87.6 Hypokalemia; D69.6 Thrombocytopenia, unspecified
CPT/HCPCS: 80048; 80076; 83735; 85014; 85018; 85027; 85610; 85730; 86850; 86900; 86901; 99281; 99285; C9113; G0378; J0360; J2060; J2250; J2765; J3411; J7030; J7120

== ENCOUNTER 2018-02-07 13:18 | Emergency (ER) | payer OTHER ==
[2018-02-07] VITALS (8 sets, daily range): BP systolic 140–166; BP diastolic 58–96
[~2018-02-07] VITALS: Ht 177.8 cm; Wt 141.8 kg
[2018-02-07 14:12] LABS: CHLORIDE 108 mEq/L (99-109); POTASSIUM 4.7 mEq/L (3.7-5.4); SODIUM 138 mEq/L (136-147)
[2018-02-07 14:14] LABS: GLUCOSE 123 mg/dL (70-99)
[2018-02-07 14:17] LABS: HEMATOCRIT 28.6 % (38.0-50.0); HEMOGLOBIN 8.3 G/DL (12.5-16.6); MCH 20.6 PG (29.0-34.0); MCV 71.1 FL (86-99); PLATELET COUNT 145 K/uL (156-360); RBC DIS.WIDTH-CV 18.4 % (11.8-14.6); RBC DIS.WIDTH-SD 45.7 % (39-53); RED BLOOD COUNT 4.02 M/uL (4.00-5.50); WHITE BLOOD COUNT 5.4 K/uL (4.1-10.2)
[2018-02-07 14:18] LABS: GFR ESTIMATE (CALCULATED) > 59 mL/min/ (58.99-99999)
[2018-02-07 14:19] LABS: UREA NITROGEN (BUN) 14 mg/dL (9-23)
[2018-02-07 15:02] LABS: TROP-I INTERPRETATION NEGATIVE; TROPONIN-I 0.01 ng/mL (0.0-0.30)
[2018-02-07 19:12] LABS: HEMOGLOBIN 7.8 G/DL (12.5-16.6); MCV 71.2 FL (86-99)
== END 2018-02-07 22:22 | disposition home or self-care (01) ==
LOC: EME 13:18
PROVIDERS: Nurse Practitioner Family
PROC: 30233N1 Transfusion of Nonautologous Red Blood Cells into Peripheral Vein, Percutaneous Approach (ICD-10-PCS; principal; 2018-02-07)
DX: K92.1 Melena (principal); D64.9 Anemia, unspecified; I10 Essential (primary) hypertension; K21.9 Gastro-esophageal reflux disease without esophagitis; F41.9 Anxiety disorder, unspecified; M10.9 Gout, unspecified; Z86.69 Personal history of other diseases of the nervous system and sense organs; Z87.891 Personal history of nicotine dependence
CPT/HCPCS: 80048; 84484; 85014; 85018; 85027; 86850; 86900; 86901; 86920; 93005; 99281; 99285; J7030; P9016

== ENCOUNTER 2018-04-06 07:51 | Emergency (ER) | payer OTHER ==
[~2018-04-06] VITALS: Ht 177.8 cm; Wt 143.1 kg
[2018-04-06 08:38] LABS: INTER. NORMALIZED RATIO 1.1
[2018-04-06 08:40] LABS: BASOPHIL COUNT 0.1 K/uL (0-0.1); EOSINOPHIL (%) 8.2 % (0-5); EOSINOPHIL COUNT 0.6 K/uL (0-0.3); HEMATOCRIT 35.2 % (38.0-50.0); HEMOGLOBIN 10.2 G/DL (12.5-16.6); IMMATURE GRANULOCYTE (%) 0.1 % (0.0-0.7); LYMPHOCYTE COUNT 1.8 K/uL (1.0-2.8); MCH 21.7 PG (29.0-34.0); MCV 74.9 FL (86-99); MONOCYTE (%) 13.4 % (3-12); MONOCYTE COUNT 0.9 K/uL (0-0.8); NEUTROPHIL (%) 51.3 % (45-76); NEUTROPHIL COUNT 3.4 K/uL (1.8-6.4); PLATELET COUNT 141 K/uL (156-360); RBC DIS.WIDTH-CV 20.9 % (11.8-14.6); RBC DIS.WIDTH-SD 54.6 % (39-53); WHITE BLOOD COUNT 6.7 K/uL (4.1-10.2)
[2018-04-06 08:42] LABS: CHLORIDE 106 mEq/L (99-109); POTASSIUM 4.7 mEq/L (3.7-5.4); SODIUM 136 mEq/L (136-147)
[2018-04-06 08:44] LABS: GLUCOSE 108 mg/dL (70-99)
[2018-04-06 08:48] LABS: CREATININE 1.2 mg/dL (0.6-1.3); GFR ESTIMATE (CALCULATED) > 59 mL/min/ (58.99-99999)
[2018-04-06 08:49] LABS: UREA NITROGEN (BUN) 15 mg/dL (9-23)
[2018-04-06 10:24] VITALS: BP 151/99
== END 2018-04-06 10:25 | disposition home or self-care (01) ==
LOC: EME 07:51
PROVIDERS: Emergency Medicine
DX: K92.2 Gastrointestinal hemorrhage, unspecified (principal); I10 Essential (primary) hypertension; K21.9 Gastro-esophageal reflux disease without esophagitis; F41.9 Anxiety disorder, unspecified; Z87.891 Personal history of nicotine dependence
CPT/HCPCS: 80048; 85025; 85610; 86850; 86900; 86901; 99281; 99284

== ENCOUNTER 2018-04-13 22:11 | Emergency (ER) | payer OTHER ==
[~2018-04-13] VITALS: Ht 177.8 cm; Wt 143.7 kg
[2018-04-13 23:00] LABS: HEMATOCRIT 35.8 % (38.0-50.0); HEMOGLOBIN 10.5 G/DL (12.5-16.6); MCHC 29.3 G/DL (30.0-36.0); MCV 75.1 FL (86-99); PLATELET COUNT 142 K/uL (156-360); RBC DIS.WIDTH-CV 20.4 % (11.8-14.6); RBC DIS.WIDTH-SD 53.6 % (39-53); RED BLOOD COUNT 4.77 M/uL (4.00-5.50); WHITE BLOOD COUNT 6.5 K/uL (4.1-10.2)
[2018-04-13 23:11] LABS: CHLORIDE 107 mEq/L (99-109); POTASSIUM 4.2 mEq/L (3.7-5.4); SODIUM 139 mEq/L (136-147)
[2018-04-13 23:12] LABS: GLUCOSE 128 mg/dL (70-99)
[2018-04-13 23:16] LABS: CREATININE 1.2 mg/dL (0.6-1.3); GFR ESTIMATE (CALCULATED) > 59 mL/min/ (58.99-99999)
[2018-04-13 23:17] LABS: UREA NITROGEN (BUN) 19 mg/dL (9-23)
[2018-04-14 02:23] VITALS: BP 139/81
== END 2018-04-14 02:23 | disposition home or self-care (01) ==
LOC: EME 22:11
DX: R55 Syncope and collapse (principal); I10 Essential (primary) hypertension; C34.11 Malignant neoplasm of upper lobe, right bronchus or lung; Z87.891 Personal history of nicotine dependence
CPT/HCPCS: 71046; 80048; 85027; 93005; 99281; 99284